=== PATIENT | male | born 1955 | race Caucasian/White ===

== ENCOUNTER 2017-07-30 08:13 | Outpatient (CLI) | payer OTHER ==
[~2017-07-30 08:13] MED LIST: ASPI-1009 PO; COR3.125T PO; LISI-222 PO; METF500T PO; METH5TAB PO; MORP60TA32 PO; OMEG500C PO; OMEP-84 PO; PRED20TA PO; ROSU40TA PO
[2017-07-30] MEDS ORDERED: nitroGLYCERIN 0.4mg SUBLingual tab SL PRN (08:35)
[2017-07-30] MEDS ORDERED: aminophylline 250mg/10ml inj. IV PRN (08:35)
[2017-07-30] MEDS ORDERED: regadenoson 0.4mg/5ml syringe IV ONE ×2 (08:35→10:06)
[2017-07-30] MEDS ORDERED: normal saline 500ml IV soln 500 ML IV ONE (08:35)
[2017-07-30 10:05] VITALS: BP 130/55
[2017-07-30] MEDS ORDERED: aminophylline inj. 10 ML IV ONE (10:06)
[2017-07-30 10:18] VITALS: BP 132/50
[2017-07-30 10:20] VITALS: BP_SYST 116; BP_SYST 123; BP_DIAS 51; BP_DIAS 60
[2017-07-30 10:21] VITALS: BP 121/57
[2017-07-30 10:25] VITALS: BP 132/58
== END 2017-07-30 23:59 | disposition home or self-care (01) ==
LOC: RAD 08:13
PROVIDERS: ATTEND Internal Medicine Interventional Cardiology
DX: R07.9 Chest pain, unspecified (principal); Z88.0 Allergy status to penicillin; Z72.89 Other problems related to lifestyle
CPT/HCPCS: 78452; A9500; J0280; J7030

== ENCOUNTER 2020-02-14 08:30 | Inpatient (IN) | payer MEDICARE ==
[2020-02-07 16:35] LABS: LYMPHOCYTES # (AUTO) 0.8 X10'3 (1.1-4.8); MEAN CORPUSCULAR HGB CONC 30.5 g/dL (33.0-36.5); MONOCYTES # (AUTO) 0.3 X10'3 (0-0.9)
[2020-02-07 16:37] LABS: BASOPHILS % (AUTO) 1.5 % (0-1); EOSINOPHILS % (AUTO) 1.3 % (0-6); LYMPHOCYTES % (AUTO) 23.2 % (21-51); MEAN CORPUSCULAR HEMOGLOBIN 23.2 PG (27.0-31.0); MEAN CORPUSCULAR VOLUME 75.9 FL (78-98); MEAN PLATELET VOLUME 9.2 FL (7.4-10.4); MONOCYTES % (AUTO) 9.6 % (2-12); NEUTROPHILS # (AUTO) 2.1 X10'3 (1.8-7.7); NEUTROPHILS % (AUTO) 64.4 % (42-75); PRE OP HEMATOCRIT 28.4 % (42.0-52.0); RED BLOOD COUNT 3.75 X10'6 (4.70-6.10)
[2020-02-07 16:59] LABS: ALBUMIN 3.9 G/DL (3.4-5.0); ALBUMIN/GLOBULIN RATIO 1.3 (1.1-1.5); ALKALINE PHOSPHATASE 81 IU/L (46-116); BLOOD UREA NITROGEN 19 MG/DL (7-18); BUN/CREATININE RATIO 16.5 (5.4-32.0); CALCIUM 9.3 MG/DL (8.5-10.1); CHLORIDE 99 MMOL/L (99-107); CREATININE 1.15 MG/DL (0.60-1.10); PRE OP ALT 23 U/L (30-65); PRE OP ANION GAP 3 (8-16); PRE OP AST 19 U/L (10-37); PRE OP BILIRUB, TOTAL 0.5 MG/DL (0.0-1.0); PRE OP GLUCOSE 131 MG/DL (70-104); PRE OP POTASSIUM 4.2 MMOL/L (3.4-5.1); PRE OP SODIUM 137 MMOL/L (135-145); TOTAL CARBON DIOXIDE 35.4 MMOL/L (24-32); TOTAL PROTEIN 6.9 G/DL (6.4-8.2); eGFR 64 ML/MIN
[2020-02-07 17:05] LABS: PRE OP HEMOGLOBIN 8.7 g/dL (14.0-17.9)
[2020-02-07 17:06] LABS: PRE OP PLATELET COUNT 92 X10'3 (140-440)
[2020-02-07 17:13] LABS: PRE OP INR 1.1 INR; PRE OP PROTIME 11.6 SECONDS (9.0-12.0)
[2020-02-07 17:29] LABS: HEMOGLOBIN A1C 6.2 % (4.5-6.2)
[2020-02-07 17:42] LABS: ANISOCYTOSIS 3+; HYPOCHROMASIA 1+; MICROCYTOSIS 1+; PLATELET ESTIMATE DECREASED; POIKILOCYTOSIS 1+; POLYCHROMASIA FEW
[2020-02-07 17:43] LABS: ELLIPTOCYTES 1+; SCHISTOCYTES 1+; TEAR DROP CELLS 1+
[~2020-02-14] VITALS: Ht 167.6 cm; Wt 81.6 kg
[2020-02-14] VITALS (17 sets, daily range): BP systolic 90–145; BP diastolic 40–88
[~2020-02-14 08:30] MED LIST changes: -ASPI-1009 PO; +CHOL20004 PO; +CITA20TA26 PO; +DAPA10TA PO; +DOCUMENT DATE & TIME OF BETA-BLOCKER PO ONE; +MESSAGE TO NURSING IV ONE; +METH-603 PO; -METH5TAB PO; +MORP30TA PO; -MORP60TA32 PO; -OMEG500C PO; -PRED20TA PO; -ROSU40TA PO; +SIMV-45 PO; +TORS10TA17 PO; +famotidine 20mg tablet PO ONE; +tranexamic acid inj. 820 MG in normal saline 100ml IV soln 100 ML IV ONE; +vancomycin 1,500 MG in NS 300ml IV soln IV ONE
[2020-02-14] MEDS ORDERED: ceFAZolin 2gm in dextrose, iso 50 ML IV ONE (09:05)
[2020-02-14] MEDS: ringers solution, lacted 1,000 ML IV SCH ×3 (09:20→18:12)
[2020-02-14] MEDS ORDERED: morphine 4 MG/ML inj SYRINge IV ONE ×2 (09:30→11:05)
[2020-02-14] MEDS ORDERED: midazolam 2 mg/2 ml injection IV ONE (09:30)
[2020-02-14] MEDS ORDERED: morphine 4 MG/ML inj SYRINge ONE (10:59)
[2020-02-14] MEDS ORDERED: ketorolac trometh. 30mg/ml inj. ONE (11:30)
[2020-02-14] MEDS ORDERED: BUPIVAcaine/PF 2.5 mg/ml (0.25%) 30ml vial ONE (11:31)
[2020-02-14] MEDS ORDERED: fentaNYL/PF 50MCG/1 ML 2ML syringe ONE ×2 (12:21→13:25)
[2020-02-14] MEDS ORDERED: MIDAZolam 5mg/5ml vial ONE (12:21)
[2020-02-14] MEDS ORDERED: ondansetron/PF 4mg/2ml inj ONE (12:40)
[2020-02-14] MEDS ORDERED: glycopyrrolate 0.2mg/ml inj ONE (12:40)
[2020-02-14] MEDS ORDERED: sevoflurane 250ml liquid IH ONE (12:40)
[2020-02-14] MEDS ORDERED: rocuronium 10mg/ml inj IV ONE (12:40)
[2020-02-14] MEDS ORDERED: LIDOcaine 1%/PF 5ML 10 MG/ML VIAL ONE (12:40)
[2020-02-14] MEDS ORDERED: neostigmine methylsulfate 1 MG/ML 10ml vial ONE (12:40)
[2020-02-14] MEDS ORDERED: ROPIVAcaine 0.2% (10 MG/5 ML) BOLUS INJECTION INTERSCALE PRN (14:40)
[2020-02-14] MEDS ORDERED: propofol inj 20 ML IV ONE (15:22)
[2020-02-14] MEDS ORDERED: dexamethasone sod phosphate 4mg/ml inj. ONE (15:22)
[2020-02-14] MEDS ORDERED: ROPIVAcaine 0.5% (5mg/ml) 30ml vial ONE ×2 (15:22)
[2020-02-14] MEDS ORDERED: magnesium hydroxide 30ml (MOM) UD suspension PO PRN (15:35)
[2020-02-14] MEDS ORDERED: acetaminophen 325mg tablet PO PRN (15:35)
[2020-02-14] MEDS ORDERED: morphine ER 30mg tablet PO PRN (15:35)
[2020-02-14] MEDS ORDERED: HYDROmorphone inj. 0.5 MG/0.5 ML DISP.SYRIN IV PRN ×2 (15:35→16:20)
[2020-02-14] MEDS ORDERED: bisacodyl 10mg suppository rectal RC PRN (15:35)
[2020-02-14] MEDS ORDERED: diphenhydrAMINE 25mg capsule PO PRN (15:35)
[2020-02-14] MEDS ORDERED: ondansetron/PF 4mg/2ml inj IV PRN (15:35)
[2020-02-14] MEDS: potassium cl 20mEq in 1/2 NS 1,000 ML IV SCH ×3 (15:35→21:20)
--- NOTE | 2020-02-14 15:37 | NUR ---
RECEIVED FROM OR VIA BED WITH OHTF ACCOMPANIED BY ANESTHESIOLOGIST DR CHENEY, REPORT GIVEN. PT AWAKE AND ALERT AND STATING PAIN AT A LEVEL 9. 18 GAUGE PIV L HAND PATENT AND RUNNING LR AT 100 ML/HR. RIGHT SHOULDER DRESSING CDI WITH POWDER PACK AND SLING IN PLACE. PPULSES PALPABLE, BRISK CAP REFILL, KELLER WITH RIGHT UE LIMITED WITH BLOCK. BLOCK CATHETER IN PLACE. SCDS APPLIED.
[2020-02-14] MEDS: ROPIVAcaine 0.2%/PF PUMP/bolus 550 ML INTERSCALE SCH (15:43)
[2020-02-14] MEDS ORDERED: meperidine/PF 25mg/ml syringe ONE (15:52)
[2020-02-14] MEDS ORDERED: LORazepam 2 mg/ml vial IV ONE (15:55)
--- NOTE | 2020-02-14 17:07 | NUR ---
TRANSFERRED VIA BED WITH OHTF ACCOMPANIED BY MYSELF, REPORT GIVEN. PT AWAKE AND ALERT AND STATING PAIN AT A LEVEL 5. 18 GAUGE PIV L HAND PATENT AND RUNNING LR AT 100 ML/HR. RIGHT SHOULDER DRESSING CDI WITH POWDER PACK AND SLING IN PLACE. PPULSES PALPABLE, BRISK CAP REFILL, KELLER WITH RIGHT UE LIMITED WITH BLOCK. BLOCK CATHETER IN PLACE. SCDS APPLIED. PT VERY RESTLESS. LEFT IN CARE OF ANGELINA RN
--- NOTE | 2020-02-14 17:10 | NUR ---
Patient in room ORTHO 4020. I have received report from internal grinder and had the opportunity to ask questions and assume patient care.
--- NOTE | 2020-02-14 17:20 | NUR ---
Patient made to floor taken to room patient on 10L with mask, upped to 14 upon arrival sats at 97% patient breathing wnl, all vitals stable, patient seemed uncomfortable while awake. Patient was set up with post ops and call light. Patient right should were elevated up and had sling in place. Patient sedated from pain control onQ running at 2 and LR at 100ml/hr upon receiving patient.
--- NOTE | 2020-02-14 18:30 | NUR ---
RECEIVED REPORT FROM ANGELINA RODRIGUEZ AND ASSUMED PATIENT CARE
--- NOTE | 2020-02-14 18:30 | NUR ---
Problems reprioritized. Patient report given, questions answered & plan of care reviewed with Annelise RODRIGUEZ.
[2020-02-14] MEDS ORDERED: tranexamic acid inj. 820 MG in normal saline 100ml IV soln 100 ML IV ONE (18:35)
[2020-02-14] MEDS: ceFAZolin 1GM/D5W- ADD-VANTAGE 50 ML IV SCH (18:52)
[2020-02-14] MEDS: carvedilol 6.25mg tablet PO SCH (20:00)
[2020-02-14] MEDS ORDERED: vancomycin/NS 1 GM ADD-VANTAGE 250 ML IV SCH (20:00)
[2020-02-14] MEDS: methadone 10mg tablet PO SCH (22:02)
[2020-02-14] MEDS: sennosides 8.6mg tablet PO SCH (22:02)
[2020-02-14] MEDS: acetaminophen 325mg tablet PO SCH (22:02)
[2020-02-14] MEDS: metFORMIN 500mg tablet PO SCH (22:02)
[2020-02-14] MEDS: atorvastatin 20mg tablet PO SCH (22:02)
[2020-02-14] MEDS: oxyCODONE IR 5mg (immed. release) tablet PO PRN (23:03)
[2020-02-15 02:00] VITALS: BP 129/62
[2020-02-15] MEDS: acetaminophen 325mg tablet PO SCH ×4 (03:54→19:54)
[2020-02-15] MEDS: oxyCODONE IR 5mg (immed. release) tablet PO PRN ×3 (03:54→19:55)
[2020-02-15] MEDS: ceFAZolin 1GM/D5W- ADD-VANTAGE 50 ML IV SCH (03:55)
[2020-02-15] MEDS: potassium cl 20mEq in 1/2 NS 1,000 ML IV SCH ×2 (04:53→23:35)
[2020-02-15 05:40] VITALS: BP 113/48
--- NOTE | 2020-02-15 06:10 | NUR ---
REPORT GIVEN TO ALEXIS RODRIGUEZ
[2020-02-15 07:39] LABS: BASOPHILS % (AUTO) 0.2 % (0-1); EOSINOPHILS % (AUTO) 0 % (0-6); HEMATOCRIT 24.5 % (42.0-52.0); HEMOGLOBIN 7.4 g/dl (14.0-17.9); LYMPHOCYTES # (AUTO) 0.4 X10'3 (1.1-4.8); LYMPHOCYTES % (AUTO) 8.5 % (21-51); MEAN CORPUSCULAR HEMOGLOBIN 24.2 PG (27.0-31.0); MEAN CORPUSCULAR HGB CONC 30.3 g/dL (33.0-36.5); MEAN CORPUSCULAR VOLUME 80.1 FL (78-98); MEAN PLATELET VOLUME 9.1 FL (7.4-10.4); MONOCYTES # (AUTO) 0.4 X10'3 (0-0.9); MONOCYTES % (AUTO) 8.2 % (2-12); NEUTROPHILS # (AUTO) 3.7 X10'3 (1.8-7.7); NEUTROPHILS % (AUTO) 83.1 % (42-75); PLATELET COUNT 64 X10'3 (140-440); RED BLOOD COUNT 3.06 X10'6 (4.70-6.10); RED CELL DISTRIBUTION WIDTH 24.7 % (11.5-14.5); WHITE BLOOD COUNT 4.4 X10'3 (4.5-11.0)
[2020-02-15] MEDS: aspirin 325mg tablet PO SCH (07:58)
[2020-02-15] MEDS: metFORMIN 500mg tablet PO SCH (07:58)
[2020-02-15] MEDS: methadone 10mg tablet PO SCH ×3 (07:59→19:53)
[2020-02-15] MEDS: vitamin D (cholecalciferol) 1,000 unit tablet PO SCH (07:59)
[2020-02-15] MEDS: citalopram 20mg tablet PO SCH (07:59)
[2020-02-15] MEDS: pantoprazole 40mg Tablet.DR PO SCH (07:59)
[2020-02-15] MEDS: carvedilol 6.25mg tablet PO SCH ×2 (07:59→19:53)
[2020-02-15] MEDS: furosemide 20MG tablet PO SCH (07:59)
[2020-02-15] MEDS ORDERED: (Dapagliflozin Propanediol (Farxiga) 10 MG) PO SCH (08:00)
[2020-02-15 08:02] LABS: ANION GAP 7 (8-16); CHLORIDE 100 MMOL/L (99-107); POTASSIUM 5.5 MMOL/L (3.5-5.1); SODIUM 133 MMOL/L (135-145); TOTAL CARBON DIOXIDE 26.5 MMOL/L (24-32)
[2020-02-15] MEDS: lisinopril 10 MG tablet PO SCH (08:05)
[2020-02-15] MEDS: HYDROmorphone 1 mg/ml syringe IV PRN (08:16)
[2020-02-15 09:18] LABS: ANISOCYTOSIS 3+; PLATELET ESTIMATE DECREASED
[2020-02-15 09:19] LABS: HYPOCHROMASIA 1+; POLYCHROMASIA 1+
[2020-02-15 09:20] LABS: ELLIPTOCYTES FEW; MICROCYTOSIS 2+
--- NOTE | 2020-02-15 12:32 | NUR ---
Joint Replacement Consult: Pt s/p R shoulder surgery seen by RD for written/verbal high protein ed w/ RD contact information provided. Hx T2DM A1C less than 7 and not appropriate for DM ed at this time. Pt reports has been eating higher iron foods r/t anemia hx; RD encouraged acidic/vitamin C sources w/ iron to increase absorption. Pt is agreeable to double eggs at breakfast, double meats BIDLD, and diet jello TIDWM; dietary notified. Changed to carb controlled diet today from regular prior w/ PO pending though pt reports good appetite. LBM 02/13. To f/u 02/18 for initial assessment. Addendum: 02/15/20 at [address] Amended: Links added.
[2020-02-15] MEDS ORDERED: MESSAGE TO PHARMACY PO ONE (15:40)
[2020-02-15] MEDS ORDERED: dextrose ORAL solution 15 GM/59 ML bottle PO PRN ×2 (15:40)
[2020-02-15] MEDS ORDERED: glucagon, human recombinant 1mg kit SUBCUT PRN (15:40)
[2020-02-15] MEDS ORDERED: dextrose 50%-water 50ml dispensing syringe IV PRN ×2 (15:40)
[2020-02-15 18:00] VITALS: BP 106/46
[2020-02-15] MEDS: atorvastatin 20mg tablet PO SCH (19:54)
[2020-02-15] MEDS: sennosides 8.6mg tablet PO SCH (19:55)
[2020-02-15] MEDS: insulin glargine (Lantus) pen - multi-dose SQ SCH (21:07)
[2020-02-15] MEDS: diphenhydrAMINE 25mg capsule PO PRN (21:08)
[2020-02-15 22:00] VITALS: BP 103/32
[2020-02-16] MEDS: oxyCODONE IR 5mg (immed. release) tablet PO PRN ×5 (01:02→21:58)
[2020-02-16] MEDS: ondansetron 4mg rapidly disintigrating tab PO PRN (01:11)
[2020-02-16] MEDS: acetaminophen 325mg tablet PO SCH ×3 (01:18→14:20)
[2020-02-16] MEDS: HYDROmorphone 1 mg/ml syringe IV PRN ×2 (03:20→10:53)
[2020-02-16 04:00] VITALS: BP 141/67
[2020-02-16 04:31] LABS: ABG HCO3 26.5 mmol/L (22.0-26.0); ABG OXYGEN SATURATION 95.7 % (94-97); ABG PCO2 (T) 47.6 mmHg (35.0-48.0); ABG PO2 (T) 87.5 mmHg (75.0-100.0); ALLEN'S TEST POSITIVE; FCOHb 0.4 % (0.0-3.9); FLOW 15 L/min; FMetHb 0.5 % (0.0-1.5); FO2Hb 94.8 % (94-97); PATIENT TEMPERATURE 37.4; TOTAL HEMOGLOBIN 8.9 G/dl (14.0-18.0)
[2020-02-16] MEDS ORDERED: furosemide 40mg/4ml inj IV ONE (04:35)
[2020-02-16] MEDS ORDERED: nitroGLYCERIN 1gm ointment UD TP ONE (04:35)
[2020-02-16 04:41] LABS: BASOPHILS % (AUTO) 0.4 % (0-1); EOSINOPHILS % (AUTO) 0.4 % (0-6); HEMATOCRIT 25.9 % (42.0-52.0); HEMOGLOBIN 7.8 g/dl (14.0-17.9); LYMPHOCYTES # (AUTO) 0.8 X10'3 (1.1-4.8); LYMPHOCYTES % (AUTO) 12.2 % (21-51); MEAN CORPUSCULAR HEMOGLOBIN 23.8 PG (27.0-31.0); MEAN CORPUSCULAR HGB CONC 30.1 g/dL (33.0-36.5); MONOCYTES # (AUTO) 0.7 X10'3 (0-0.9); NEUTROPHILS # (AUTO) 5.2 X10'3 (1.8-7.7); PLATELET COUNT 72 X10'3 (140-440); RED BLOOD COUNT 3.28 X10'6 (4.70-6.10); WHITE BLOOD COUNT 6.8 X10'3 (4.5-11.0)
[2020-02-16 05:22] LABS: ALBUMIN 3.4 G/DL (3.4-5.0); ANION GAP 8 (8-16); BLOOD UREA NITROGEN 40 MG/DL (7-18); BUN/CREATININE RATIO 33.6 (5.4-32.0); CALCIUM 8.6 MG/DL (8.5-10.1); CHLORIDE 100 MMOL/L (99-107); CREATININE 1.19 MG/DL (0.60-1.10); GLUCOSE 159 MG/DL (70-104); SODIUM 135 MMOL/L (135-145); TOTAL CARBON DIOXIDE 26.7 MMOL/L (24-32); TROPONIN I 0.05 NG/ML (0.0-0.05); eGFR 62 ML/MIN
[2020-02-16 06:00] VITALS: BP 141/67
--- NOTE | 2020-02-16 06:25 | NUR ---
Patient in room ORTHO 4022. I have received report from Cathy and had the opportunity to ask questions and assume patient care.
--- NOTE | 2020-02-16 06:29 | NUR ---
Problems reprioritized. Patient report given, questions answered & plan of care reviewed with JENNIFER FARFAN.
--- NOTE | 2020-02-16 06:54 | NUR ---
i administered dilaudid 1mg at 0320 but did't get scanned.
[2020-02-16 06:57] LABS: ANISOCYTOSIS 3+; MICROCYTOSIS 1+; PLATELET ESTIMATE DECREASED
[2020-02-16 06:58] LABS: POLYCHROMASIA FEW; STOMATOCYTES 1+
[2020-02-16] MEDS: potassium cl 20mEq in 1/2 NS 1,000 ML IV SCH (07:35)
[2020-02-16] MEDS: citalopram 20mg tablet PO SCH (08:00)
[2020-02-16] MEDS: pantoprazole 40mg Tablet.DR PO SCH (08:00)
[2020-02-16] MEDS: furosemide 20MG tablet PO SCH (08:02)
[2020-02-16] MEDS: methadone 10mg tablet PO SCH ×3 (08:02→21:49)
[2020-02-16] MEDS: carvedilol 6.25mg tablet PO SCH ×2 (08:03→19:00)
[2020-02-16] MEDS: vitamin D (cholecalciferol) 1,000 unit tablet PO SCH (08:05)
[2020-02-16] MEDS: lisinopril 10 MG tablet PO SCH (08:05)
[2020-02-16] MEDS: aspirin 325mg tablet PO SCH (08:06)
[2020-02-16] MEDS: insulin Lispro (HumaLOG) vial - multi-dose SQ SCH ×3 (09:08→18:58)
[2020-02-16 10:00] VITALS: BP 109/48
--- NOTE | 2020-02-16 12:05 | NUR ---
PAGER ID: [phone] MESSAGE: Marzena Clements on ortho, Mr. Ford in [id number] is requesting "afrin" nasal spray, please advise #[phone]
[2020-02-16] MEDS: oxymetazoline 15 ML nasal spray NS PRN ×2 (13:30→21:58)
[2020-02-16] MEDS: ROPIVAcaine 0.2%/PF PUMP/bolus 550 ML INTERSCALE SCH (14:40)
[2020-02-16] MEDS ORDERED: acetaminophen 325mg tablet PO PRN (15:35)
[2020-02-16 17:50] LABS: % IRON SATURATION 3 % (11-46); IRON 11 UG/DL (53-167); TOTAL IRON BINDING CAPACITY 333 UG/DL (259-388)
[2020-02-16 18:00] VITALS: BP 118/43
--- NOTE | 2020-02-16 18:25 | NUR ---
Problems reprioritized. Patient report given, questions answered & plan of care reviewed with Kenny.
[2020-02-16] MEDS: morphine IR (immed. release) 30mg tablet PO PRN (19:00)
[2020-02-16] MEDS: sennosides 8.6mg tablet PO SCH ×2 (19:00→21:49)
--- NOTE | 2020-02-16 19:31 | NUR ---
pt refusing to wear sling at this time. pain meds given. oral morphine given. will reinforce sling use.
[2020-02-16] MEDS: atorvastatin 20mg tablet PO SCH (21:49)
[2020-02-16] MEDS: insulin glargine (Lantus) pen - multi-dose SQ SCH (21:53)
[2020-02-17] VITALS (10 sets, daily range): BP systolic 95–125; BP diastolic 29–68
[2020-02-17] MEDS: diphenhydrAMINE 25mg capsule PO PRN (00:47)
[2020-02-17] MEDS: morphine IR (immed. release) 30mg tablet PO PRN ×3 (00:47→21:25)
--- NOTE | 2020-02-17 00:57 | NUR ---
pt took a walk without oxygen. came back and was wheezing. replaced oxygen - pt anxious and painful. encouraged imagery, breathing exercises, etc. pt continues to groan and talk to himself. will continue to monitor sats and breathing.
--- NOTE | 2020-02-17 01:00 | NUR ---
notified Dr. Barrios of pt's decreased sats at 80%. increased oxygen to 4L. sat patient up at side of bed. pt continues to be anxious. orders received.
[2020-02-17] MEDS ORDERED: nitroGLYCERIN 1gm ointment UD TP STA (01:11)
[2020-02-17] MEDS ORDERED: furosemide 40mg/4ml inj IV ONE (01:25)
--- NOTE | 2020-02-17 01:45 | NUR ---
Dr. Barrios came to see pt. ok for am labs to be drawn. listened to lungs -noted decreased breath sounds bilaterally. expiratory wheezes throat not in lungs. lasix given, nitro paste as well. pt sats 90% on 4L while sitting at bedside. falling asleep while sitting up. less anxious at this time. attempted to draw labs
[2020-02-17 02:06] LABS: BASOPHILS % (AUTO) 0.6 % (0-1); EOSINOPHILS # (AUTO) 0.1 X10'3 (0-0.9); EOSINOPHILS % (AUTO) 0.8 % (0-6); HEMATOCRIT 24.3 % (42.0-52.0); HEMOGLOBIN 7.4 g/dl (14.0-17.9); LYMPHOCYTES # (AUTO) 0.6 X10'3 (1.1-4.8); LYMPHOCYTES % (AUTO) 9.2 % (21-51); MEAN CORPUSCULAR HEMOGLOBIN 24.2 PG (27.0-31.0); MEAN CORPUSCULAR HGB CONC 30.3 g/dL (33.0-36.5); MEAN CORPUSCULAR VOLUME 79.8 FL (78-98); MEAN PLATELET VOLUME 9.6 FL (7.4-10.4); MONOCYTES # (AUTO) 0.8 X10'3 (0-0.9); MONOCYTES % (AUTO) 12.9 % (2-12); NEUTROPHILS # (AUTO) 4.9 X10'3 (1.8-7.7); NEUTROPHILS % (AUTO) 76.5 % (42-75); PLATELET COUNT 65 X10'3 (140-440); RED BLOOD COUNT 3.04 X10'6 (4.70-6.10); RED CELL DISTRIBUTION WIDTH 24.4 % (11.5-14.5); WHITE BLOOD COUNT 6.5 X10'3 (4.5-11.0)
[2020-02-17 02:35] LABS: ANISOCYTOSIS 3+; ELLIPTOCYTES 2+; MICROCYTOSIS 1+; PLATELET ESTIMATE DECREASED; POLYCHROMASIA FEW
[2020-02-17] MEDS: ROPIVAcaine 0.2%/PF PUMP/bolus 550 ML INTERSCALE SCH ×2 (06:28→17:37)
--- NOTE | 2020-02-17 06:31 | NUR ---
PT working with patient. noted decreased BP so discontinued nitro patch. PT doing ortho static VS. reported to JENNIFER Santizomanagement department chair issues and anxiety.
[2020-02-17 06:36] LABS: ALANINE AMINOTRANSFERASE 23 U/L (12-78); ALKALINE PHOSPHATASE 57 IU/L (46-116); ANION GAP 4 (8-16); ASPARTATE AMINO TRANSFERASE 21 U/L (10-37); BILIRUBIN,TOTAL 0.7 MG/DL (0.1-1.0); BLOOD UREA NITROGEN 37 MG/DL (7-18); BUN/CREATININE RATIO 28.9 (5.4-32.0); CALCIUM 8.5 MG/DL (8.5-10.1); CHLORIDE 102 MMOL/L (99-107); CREATININE 1.28 MG/DL (0.60-1.10); GLUCOSE 186 MG/DL (70-104); POTASSIUM 5.4 MMOL/L (3.5-5.1); SODIUM 138 MMOL/L (135-145); TOTAL CARBON DIOXIDE 32.5 MMOL/L (24-32); eGFR 57 ML/MIN
[2020-02-17] MEDS: pantoprazole 40mg Tablet.DR PO SCH (07:54)
[2020-02-17] MEDS: citalopram 20mg tablet PO SCH (07:55)
[2020-02-17] MEDS: carvedilol 6.25mg tablet PO SCH ×2 (07:55→21:29)
[2020-02-17] MEDS: methadone 10mg tablet PO SCH ×3 (07:56→21:26)
[2020-02-17] MEDS: furosemide 20MG tablet PO SCH (07:57)
[2020-02-17] MEDS: ferrous sulfate 325mg tablet PO SCH (07:57)
[2020-02-17] MEDS: vitamin D (cholecalciferol) 1,000 unit tablet PO SCH (07:58)
[2020-02-17] MEDS: lisinopril 10 MG tablet PO SCH (07:59)
[2020-02-17] MEDS: aspirin 325mg tablet PO SCH (08:00)
[2020-02-17] MEDS: insulin Lispro (HumaLOG) vial - multi-dose SQ SCH ×3 (09:21→19:34)
[2020-02-17] MEDS: oxyCODONE IR 5mg (immed. release) tablet PO PRN ×2 (10:57→19:10)
--- NOTE | 2020-02-17 11:21 | NUR ---
Student documentation: I have reviewed all interventions, assessments performed and documented by Leander Moran. Student Medication Administration: For this medication-pass time frame, all medication were reviewed, dispensed, administered and documented per hospital policy by Leander Moran.
[2020-02-17 11:50] LABS: OCCULT BLOOD STOOL NEGATIVE (Neg)
--- NOTE | 2020-02-17 13:40 | NUR ---
PAGER ID: [phone] MESSAGE: [id number] Nathen Ford Can I get a potassium draw prior to discharge his K was 5.4 Darlyn [id number]
--- NOTE | 2020-02-17 14:33 | NUR ---
PAGER ID: [phone] MESSAGE: [phone] Nathen Ford Patient xray is up, but no report. Darlyn [phone]
--- NOTE | 2020-02-17 15:54 | NUR ---
Student documentation: I have reviewed and agree assessment performed and documented by Yolis Garsia [facility].
--- NOTE | 2020-02-17 15:59 | NUR ---
Student Medication Administration: For this medication-pass time frame, all medication were reviewed, dispensed, administered and documented per hospital policy by Yolis Garsia [facility].
[2020-02-17] MEDS: levoFLOXACIN-Levaquin 500mg/D5 100 ML IV SCH ×2 (17:42→18:50)
--- NOTE | 2020-02-17 18:45 | NUR ---
Patient in room ORTHO 4020. I have received report from Darlyn RODRIGUEZ and had the opportunity to ask questions and assume patient care.
--- NOTE | 2020-02-17 19:01 | NUR ---
Problems reprioritized. Patient report given, questions answered & plan of care reviewed with Kenny RODRIGUEZ.
--- NOTE | 2020-02-17 19:35 | NUR ---
placed on tele 9. blood cultures and hbg drawn. patient sitting in chair. monitorying manual BP
[2020-02-17 19:47] LABS: HEMATOCRIT 23.1 % (42.0-52.0); MEAN CORPUSCULAR HEMOGLOBIN 23.5 PG (27.0-31.0); MEAN CORPUSCULAR HGB CONC 29.7 g/dL (33.0-36.5); MEAN CORPUSCULAR VOLUME 78.9 FL (78-98); MEAN PLATELET VOLUME 9.5 FL (7.4-10.4); PLATELET COUNT 67 X10'3 (140-440); RED BLOOD COUNT 2.93 X10'6 (4.70-6.10); RED CELL DISTRIBUTION WIDTH 24.1 % (11.5-14.5); WHITE BLOOD COUNT 4.2 X10'3 (4.5-11.0)
[2020-02-17 20:06] LABS: HEMOGLOBIN 6.9 g/dl (14.0-17.9)
[2020-02-17] MEDS ORDERED: furosemide 20 MG/2 ML vial IV ONE (20:35)
--- NOTE | 2020-02-17 21:12 | NUR ---
iv started by ER nurse. blood sent to lab with new blood bank number. awaiting unit to transfuse. pt trying to get ahold of . messages left. noted pt gets anxious quickly
[2020-02-17] MEDS: atorvastatin 20mg tablet PO SCH (21:25)
[2020-02-17] MEDS: sennosides 8.6mg tablet PO SCH (21:25)
[2020-02-17] MEDS: oxymetazoline 15 ML nasal spray NS PRN (21:26)
[2020-02-17] MEDS: insulin glargine (Lantus) pen - multi-dose SQ SCH (21:30)
--- NOTE | 2020-02-17 22:00 | NUR ---
unble to get ahold of . multiple attempts by staff and fur machine operator. message left on a non-descript voicemail. no return call.
--- NOTE | 2020-02-17 23:13 | NUR ---
blood transfusion initiated. noted low sats. increased oxygen to 5L nc while patient sleeping he mouth breaths. noted long expirations and throat wheezes same as last noc. no distres noted at this time. freq VS for blood transfusion. humidification given to oxygen
[2020-02-18] VITALS (8 sets, daily range): BP systolic 96–132; BP diastolic 38–58
[2020-02-18] MEDS: morphine IR (immed. release) 30mg tablet PO PRN (04:39)
--- NOTE | 2020-02-18 05:54 | NUR ---
's phone number we think is [phone]
--- NOTE | 2020-02-18 06:33 | NUR ---
reported to days. noted pt up in chair, on 2L oxygen. pt states he failed cpap 12 years ago and hasn't tried again since then. encouraged to try again as outpatient due to obstructive apnea in the night.
--- NOTE | 2020-02-18 06:52 | NUR ---
Patient in room ORTHO 4020. I have received report from Kenny RODRIGUEZ and had the opportunity to ask questions and assume patient care.
--- NOTE | 2020-02-18 06:56 | NUR ---
Patient in room ORTHO 4020. I have received report from Kenny and had the opportunity to ask questions and assume patient care.
[2020-02-18] MEDS: pantoprazole 40mg Tablet.DR PO SCH (07:38)
[2020-02-18] MEDS: methadone 10mg tablet PO SCH ×3 (07:39→21:31)
[2020-02-18] MEDS: carvedilol 6.25mg tablet PO SCH ×2 (07:39→19:45)
[2020-02-18] MEDS: citalopram 20mg tablet PO SCH (07:39)
[2020-02-18] MEDS: levoFLOXACIN-Levaquin 500mg/D5 100 ML IV SCH (07:39)
[2020-02-18] MEDS: ferrous sulfate 325mg tablet PO SCH (07:40)
[2020-02-18] MEDS: vitamin D (cholecalciferol) 1,000 unit tablet PO SCH (07:40)
[2020-02-18] MEDS: furosemide 20MG tablet PO SCH (07:40)
[2020-02-18] MEDS: lisinopril 10 MG tablet PO SCH (07:41)
[2020-02-18 10:03] LABS: BASOPHILS % (AUTO) 0.7 % (0-1); EOSINOPHILS # (AUTO) 0.1 X10'3 (0-0.9); EOSINOPHILS % (AUTO) 1.9 % (0-6); HEMATOCRIT 26.8 % (42.0-52.0); LYMPHOCYTES # (AUTO) 0.6 X10'3 (1.1-4.8); LYMPHOCYTES % (AUTO) 14.3 % (21-51); MEAN CORPUSCULAR HGB CONC 29.9 g/dL (33.0-36.5); MEAN CORPUSCULAR VOLUME 80.2 FL (78-98); MEAN PLATELET VOLUME 10.1 FL (7.4-10.4); MONOCYTES # (AUTO) 0.6 X10'3 (0-0.9); NEUTROPHILS % (AUTO) 70.1 % (42-75); PLATELET COUNT 71 X10'3 (140-440); RED BLOOD COUNT 3.35 X10'6 (4.70-6.10); RED CELL DISTRIBUTION WIDTH 23.1 % (11.5-14.5); WHITE BLOOD COUNT 4.3 X10'3 (4.5-11.0)
[2020-02-18 10:21] LABS: ALANINE AMINOTRANSFERASE 22 U/L (12-78); ALBUMIN 2.9 G/DL (3.4-5.0); ALBUMIN/GLOBULIN RATIO 0.9 (1.1-1.5); ALKALINE PHOSPHATASE 68 IU/L (46-116); ANION GAP 10 (8-16); ASPARTATE AMINO TRANSFERASE 21 U/L (10-37); BLOOD UREA NITROGEN 41 MG/DL (7-18); BUN/CREATININE RATIO 36.3 (5.4-32.0); CALCIUM 8.3 MG/DL (8.5-10.1); CHLORIDE 99 MMOL/L (99-107); CREATININE 1.13 MG/DL (0.60-1.10); GLUCOSE 271 MG/DL (70-104); POTASSIUM 5.2 MMOL/L (3.5-5.1); SODIUM 138 MMOL/L (135-145); TOTAL CARBON DIOXIDE 28.9 MMOL/L (24-32); TOTAL PROTEIN 6.3 G/DL (6.4-8.2); eGFR 65 ML/MIN
[2020-02-18 10:49] LABS: PLATELET ESTIMATE DECREASED
[2020-02-18 10:50] LABS: ANISOCYTOSIS 3+; HYPOCHROMASIA 1+; MICROCYTOSIS 1+; POLYCHROMASIA 1+
[2020-02-18 10:53] LABS: ELLIPTOCYTES 2+; STOMATOCYTES FEW; TEAR DROP CELLS FEW
[2020-02-18] MEDS: ondansetron 4mg rapidly disintigrating tab PO PRN (12:17)
--- NOTE | 2020-02-18 12:20 | NUR ---
PAGER ID: [phone] MESSAGE: [id number] Nathen Ford patient Xray is up [place] [id number]
[2020-02-18] MEDS: insulin Lispro (HumaLOG) vial - multi-dose SQ SCH ×2 (13:58→19:44)
[2020-02-18] MEDS: aspirin 325mg tablet PO SCH (13:59)
--- NOTE | 2020-02-18 14:56 | NUR ---
Initial: Pt admit for right rotator cuff tear now s/p surgery. Patient had a rapid response d/t hypoxemia and was diagnosed with fluid overload and treated with Lasix per MD notes. Pt remains on CHO controlled diet documented with average 75-100% PO intake meeting estimated nutrient needs. Noted that pt not receiving double protein TID or diet gelatin TID as discussed with pt per last RD note, f/u with dietary regarding food preferences. LBM 02/16. Will continue to follow. Recommendations: 1) Continue CHO controlled diet 2) Double eggs q breakfast, double meat BIDLD, diet gelatin TID 3) Bowel care per rx 4) Scaled weights per rx Addendum: 02/18/20 at [address] Amended: Links added.
[2020-02-18] MEDS: oxyCODONE IR 5mg (immed. release) tablet PO PRN ×2 (15:54→19:45)
--- NOTE | 2020-02-18 17:16 | NUR ---
Patient stated "he has had his meds adjusted by Dr. Gibbons recently."
--- NOTE | 2020-02-18 18:00 | NUR ---
Patient in room ORTHO 4020. I have received report from JENNIFER Santizo and had the opportunity to ask questions and assume patient care. Addendum: 02/18/20 at 1856 by Ghada Hackett RN Amended: Links added.
[2020-02-18] MEDS: oxymetazoline 15 ML nasal spray NS PRN (18:03)
--- NOTE | 2020-02-18 18:24 | NUR ---
PAGER ID: [phone] MESSAGE: [id number] Nathen Ford Do you want an RT eval and treat Darlyn [id number]
[2020-02-18] MEDS ORDERED: albuterol 2.5 MG/3 ML nebule NEB PRN (21:00)
[2020-02-18] MEDS: insulin glargine (Lantus) pen - multi-dose SQ SCH (21:32)
[2020-02-18] MEDS: atorvastatin 20mg tablet PO SCH (21:32)
[2020-02-18] MEDS: sennosides 8.6mg tablet PO SCH (21:32)
[2020-02-18] MEDS: diphenhydrAMINE 25mg capsule PO PRN (21:38)
[2020-02-19] MEDS: oxyCODONE IR 5mg (immed. release) tablet PO PRN ×4 (00:12→17:17)
[2020-02-19 06:45] VITALS: BP 106/52
--- NOTE | 2020-02-19 07:23 | NUR ---
IV patent, dry, clean Addendum: 02/19/20 at 0723 by Avery VARGAS Amended: Links added.
[2020-02-19 07:56] LABS: BASOPHILS % (AUTO) 0.4 % (0-1); EOSINOPHILS # (AUTO) 0.1 X10'3 (0-0.9); EOSINOPHILS % (AUTO) 2.3 % (0-6); HEMATOCRIT 26.7 % (42.0-52.0); HEMOGLOBIN 8.3 g/dl (14.0-17.9); LYMPHOCYTES # (AUTO) 0.6 X10'3 (1.1-4.8); LYMPHOCYTES % (AUTO) 16.9 % (21-51); MEAN CORPUSCULAR HEMOGLOBIN 24.7 PG (27.0-31.0); MEAN CORPUSCULAR VOLUME 79.6 FL (78-98); MEAN PLATELET VOLUME 8.7 FL (7.4-10.4); MONOCYTES # (AUTO) 0.5 X10'3 (0-0.9); MONOCYTES % (AUTO) 12.5 % (2-12); NEUTROPHILS # (AUTO) 2.5 X10'3 (1.8-7.7); NEUTROPHILS % (AUTO) 67.9 % (42-75); PLATELET COUNT 81 X10'3 (140-440); RED BLOOD COUNT 3.35 X10'6 (4.70-6.10); RED CELL DISTRIBUTION WIDTH 22.7 % (11.5-14.5); WHITE BLOOD COUNT 3.7 X10'3 (4.5-11.0)
[2020-02-19] MEDS: methadone 10mg tablet PO SCH ×3 (08:02→21:03)
[2020-02-19] MEDS: pantoprazole 40mg Tablet.DR PO SCH (08:02)
[2020-02-19] MEDS: levoFLOXACIN-Levaquin 500mg/D5 100 ML IV SCH (08:02)
[2020-02-19] MEDS: aspirin 325mg tablet PO SCH (08:08)
[2020-02-19] MEDS: lisinopril 10 MG tablet PO SCH (08:09)
[2020-02-19 08:10] LABS: ALANINE AMINOTRANSFERASE 27 U/L (12-78); ALBUMIN/GLOBULIN RATIO 0.9 (1.1-1.5); ALKALINE PHOSPHATASE 83 IU/L (46-116); ANION GAP 5 (8-16); ASPARTATE AMINO TRANSFERASE 25 U/L (10-37); BILIRUBIN,TOTAL 0.8 MG/DL (0.1-1.0); BLOOD UREA NITROGEN 35 MG/DL (7-18); BUN/CREATININE RATIO 33.3 (5.4-32.0); CALCIUM 8.4 MG/DL (8.5-10.1); CHLORIDE 104 MMOL/L (99-107); CREATININE 1.05 MG/DL (0.60-1.10); GLUCOSE 149 MG/DL (70-104); POTASSIUM 5.1 MMOL/L (3.5-5.1); SODIUM 140 MMOL/L (135-145); TOTAL CARBON DIOXIDE 31.4 MMOL/L (24-32); TOTAL PROTEIN 6.5 G/DL (6.4-8.2); eGFR 71 ML/MIN
[2020-02-19] MEDS: citalopram 20mg tablet PO SCH (08:10)
[2020-02-19] MEDS: carvedilol 6.25mg tablet PO SCH ×2 (08:10→19:23)
[2020-02-19] MEDS: ferrous sulfate 325mg tablet PO SCH (08:10)
[2020-02-19] MEDS: furosemide 20MG tablet PO SCH (08:10)
[2020-02-19] MEDS: vitamin D (cholecalciferol) 1,000 unit tablet PO SCH (08:11)
[2020-02-19 08:19] LABS: ANISOCYTOSIS 3+; HYPOCHROMASIA 1+; MICROCYTOSIS 1+; PLATELET ESTIMATE DECREASED
[2020-02-19] MEDS: insulin Lispro (HumaLOG) vial - multi-dose SQ SCH ×3 (08:49→19:22)
[2020-02-19] MEDS: ROPIVAcaine 0.2%/PF PUMP/bolus 550 ML INTERSCALE SCH (08:52)
[2020-02-19 10:00] VITALS: BP 131/47
--- NOTE | 2020-02-19 11:07 | NUR ---
Student documentation: I have reviewed and agree with all interventions, assessments performed and documented by JUAN BAEZA. Student Medication Administration: For this medication-pass time frame, all medication were reviewed, dispensed, administered and documented per hospital policy by JUAN BAEZA.
--- NOTE | 2020-02-19 11:12 | NUR ---
Patient in room ORTHO 4020. I have received report from Ghada and had the opportunity to ask questions and assume patient care.
[2020-02-19] MEDS ORDERED: LEVO500T89 PO (13:08)
[2020-02-19] MEDS ORDERED: furosemide 20 MG/2 ML vial IV ONE (13:20)
[2020-02-19 18:00] VITALS: BP 134/52
--- NOTE | 2020-02-19 18:32 | NUR ---
Problems reprioritized. Patient report given, questions answered & plan of care reviewed with Mian RODRIGUEZ.
[2020-02-19] MEDS: diphenhydrAMINE 25mg capsule PO PRN (21:03)
[2020-02-19] MEDS: atorvastatin 20mg tablet PO SCH (21:03)
[2020-02-19] MEDS: insulin glargine (Lantus) pen - multi-dose SQ SCH (21:10)
[2020-02-19 22:00] VITALS: BP 125/47
--- NOTE | 2020-02-19 22:00 | NUR ---
Pt requested to hold new PO protonix order if he is sleeping. Held as pt was asleep.
[2020-02-20] VITALS (9 sets, daily range): BP systolic 118–136; BP diastolic 37–56
[2020-02-20] MEDS: pantoprazole 40mg Tablet.DR PO SCH ×3 (02:09→21:09)
[2020-02-20] MEDS: oxyCODONE IR 5mg (immed. release) tablet PO PRN ×4 (02:10→22:17)
[2020-02-20] MEDS: morphine IR (immed. release) 30mg tablet PO PRN ×3 (05:27→17:39)
[2020-02-20 06:29] LABS: BASOPHILS % (AUTO) 0.6 % (0-1); EOSINOPHILS # (AUTO) 0.1 X10'3 (0-0.9); EOSINOPHILS % (AUTO) 1.8 % (0-6); HEMATOCRIT 24.7 % (42.0-52.0); HEMOGLOBIN 7.5 g/dl (14.0-17.9); LYMPHOCYTES # (AUTO) 0.5 X10'3 (1.1-4.8); LYMPHOCYTES % (AUTO) 18.8 % (21-51); MEAN CORPUSCULAR HEMOGLOBIN 24.1 PG (27.0-31.0); MEAN CORPUSCULAR HGB CONC 30.4 g/dL (33.0-36.5); MEAN CORPUSCULAR VOLUME 79.2 FL (78-98); MONOCYTES # (AUTO) 0.4 X10'3 (0-0.9); MONOCYTES % (AUTO) 13.2 % (2-12); NEUTROPHILS # (AUTO) 1.8 X10'3 (1.8-7.7); NEUTROPHILS % (AUTO) 65.6 % (42-75); PLATELET COUNT 71 X10'3 (140-440); RED BLOOD COUNT 3.12 X10'6 (4.70-6.10); RED CELL DISTRIBUTION WIDTH 22.6 % (11.5-14.5); WHITE BLOOD COUNT 2.8 X10'3 (4.5-11.0)
--- NOTE | 2020-02-20 06:46 | NUR ---
Problems reprioritized. Patient report given, questions answered & plan of care reviewed with Emily RODRIGUEZ.
[2020-02-20 06:50] LABS: ALANINE AMINOTRANSFERASE 24 U/L (12-78); ALBUMIN 2.7 G/DL (3.4-5.0); ALBUMIN/GLOBULIN RATIO 0.8 (1.1-1.5); ALKALINE PHOSPHATASE 81 IU/L (46-116); ANION GAP 6 (8-16); ASPARTATE AMINO TRANSFERASE 24 U/L (10-37); BILIRUBIN,TOTAL 0.9 MG/DL (0.1-1.0); BLOOD UREA NITROGEN 23 MG/DL (7-18); BUN/CREATININE RATIO 28.4 (5.4-32.0); CALCIUM 8.3 MG/DL (8.5-10.1); CHLORIDE 105 MMOL/L (99-107); CREATININE 0.81 MG/DL (0.60-1.10); GLUCOSE 93 MG/DL (70-104); POTASSIUM 4.1 MMOL/L (3.5-5.1); SODIUM 140 MMOL/L (135-145); TOTAL CARBON DIOXIDE 29.1 MMOL/L (24-32); TOTAL PROTEIN 5.9 G/DL (6.4-8.2); eGFR > 90 ML/MIN
[2020-02-20] MEDS: levoFLOXACIN-Levaquin 500mg/D5 100 ML IV SCH (08:29)
[2020-02-20] MEDS: carvedilol 6.25mg tablet PO SCH ×2 (08:29→19:34)
[2020-02-20] MEDS: furosemide 20MG tablet PO SCH (08:29)
[2020-02-20] MEDS: methadone 10mg tablet PO SCH ×3 (08:29→21:11)
[2020-02-20] MEDS: citalopram 20mg tablet PO SCH (08:29)
[2020-02-20] MEDS: ferrous sulfate 325mg tablet PO SCH (08:29)
[2020-02-20] MEDS: lisinopril 10 MG tablet PO SCH (08:30)
[2020-02-20] MEDS: vitamin D (cholecalciferol) 1,000 unit tablet PO SCH (08:30)
[2020-02-20] MEDS: aspirin 325mg tablet PO SCH (08:30)
[2020-02-20 08:53] LABS: TOTAL CELLS COUNTED 100
[2020-02-20 08:54] LABS: ANISOCYTOSIS 3+; MICROCYTOSIS 1+; PLATELET ESTIMATE DECREASED
[2020-02-20 08:55] LABS: HYPOCHROMASIA 1+
[2020-02-20] MEDS: insulin Lispro (HumaLOG) vial - multi-dose SQ SCH ×3 (09:25→19:34)
--- NOTE | 2020-02-20 12:00 | NUR ---
Dr Bansal at bedside, discussed transfusion of PRBC with patient. Call to Blood Bank per DR pena, Ok to transfuse per protocol. [address] Bansal.
--- NOTE | 2020-02-20 17:50 | NUR ---
One unit PRBC infused per MD order and finished at 1725. Pt tolerated well. No change in vital signs or temperature. CBC scheduled for am. Will continue to monitor.
--- NOTE | 2020-02-20 18:20 | NUR ---
Patient in room ORTHO 4020. I have received report from Emily RODRIGUEZ and had the opportunity to ask questions and assume patient care.
--- NOTE | 2020-02-20 21:00 | NUR ---
pt became very angry at [address], accuck. Stated he wanted all of his pain meds at one time. I explained the MD orders for medications, dose times, effects of resp. depression. Pt has started yelling that I am the only one who would not give him all of his meds at one time> I reviewed med times 3x to no avail. Pt continued to argue. Charge came in reviewed meds and confirmed appropriateness of medical center representative. After this pt became much more cooperative.
[2020-02-20] MEDS: sennosides 8.6mg tablet PO SCH (21:08)
[2020-02-20] MEDS: atorvastatin 20mg tablet PO SCH (21:08)
[2020-02-20] MEDS: diphenhydrAMINE 25mg capsule PO PRN (21:16)
[2020-02-20] MEDS: insulin glargine (Lantus) pen - multi-dose SQ SCH (21:23)
[2020-02-21] MEDS: morphine IR (immed. release) 30mg tablet PO PRN (04:56)
[2020-02-21 06:00] VITALS: BP 135/46
--- NOTE | 2020-02-21 06:30 | NUR ---
Problems reprioritized. Patient report given, questions answered & plan of care reviewed with Emily RODRIGUEZ.
[2020-02-21 06:39] LABS: BASOPHILS % (AUTO) 0.5 % (0-1); EOSINOPHILS % (AUTO) 0.9 % (0-6); HEMATOCRIT 28.1 % (42.0-52.0); HEMOGLOBIN 8.8 g/dl (14.0-17.9); LYMPHOCYTES # (AUTO) 0.7 X10'3 (1.1-4.8); LYMPHOCYTES % (AUTO) 17.9 % (21-51); MEAN CORPUSCULAR HGB CONC 31.2 g/dL (33.0-36.5); MEAN CORPUSCULAR VOLUME 80.1 FL (78-98); MEAN PLATELET VOLUME 8.9 FL (7.4-10.4); MONOCYTES # (AUTO) 0.4 X10'3 (0-0.9); MONOCYTES % (AUTO) 12.1 % (2-12); NEUTROPHILS # (AUTO) 2.5 X10'3 (1.8-7.7); NEUTROPHILS % (AUTO) 68.6 % (42-75); PLATELET COUNT 74 X10'3 (140-440); RED BLOOD COUNT 3.51 X10'6 (4.70-6.10); RED CELL DISTRIBUTION WIDTH 22.9 % (11.5-14.5); WHITE BLOOD COUNT 3.7 X10'3 (4.5-11.0)
[2020-02-21 06:55] LABS: ALANINE AMINOTRANSFERASE 25 U/L (12-78); ALBUMIN 2.7 G/DL (3.4-5.0); ALBUMIN/GLOBULIN RATIO 0.8 (1.1-1.5); ALKALINE PHOSPHATASE 89 IU/L (46-116); ANION GAP 8 (8-16); ASPARTATE AMINO TRANSFERASE 26 U/L (10-37); BILIRUBIN,TOTAL 1.2 MG/DL (0.1-1.0); BLOOD UREA NITROGEN 18 MG/DL (7-18); BUN/CREATININE RATIO 22.5 (5.4-32.0); CALCIUM 8.3 MG/DL (8.5-10.1); CHLORIDE 108 MMOL/L (99-107); GLUCOSE 100 MG/DL (70-104); POTASSIUM 4.3 MMOL/L (3.5-5.1); SODIUM 145 MMOL/L (135-145); TOTAL CARBON DIOXIDE 29.2 MMOL/L (24-32); TOTAL PROTEIN 5.9 G/DL (6.4-8.2); eGFR > 90 ML/MIN
[2020-02-21] MEDS: ferrous sulfate 325mg tablet PO SCH (08:44)
[2020-02-21] MEDS: levoFLOXACIN-Levaquin 500mg/D5 100 ML IV SCH (08:44)
[2020-02-21] MEDS: citalopram 20mg tablet PO SCH (08:44)
[2020-02-21] MEDS: furosemide 20MG tablet PO SCH (08:44)
[2020-02-21] MEDS: vitamin D (cholecalciferol) 1,000 unit tablet PO SCH (08:44)
[2020-02-21] MEDS: aspirin 325mg tablet PO SCH (08:44)
[2020-02-21] MEDS: methadone 10mg tablet PO SCH (08:44)
[2020-02-21] MEDS: carvedilol 6.25mg tablet PO SCH (08:44)
[2020-02-21 08:50] VITALS: BP_SYST 135
[2020-02-21] MEDS: lisinopril 10 MG tablet PO SCH (08:50)
[2020-02-21] MEDS: insulin Lispro (HumaLOG) vial - multi-dose SQ SCH (09:02)
[2020-02-21] MEDS: pantoprazole 40mg Tablet.DR PO SCH (09:08)
[2020-02-21] MEDS: oxyCODONE IR 5mg (immed. release) tablet PO PRN (11:24)
--- NOTE | 2020-02-21 17:28 | NUR ---
Received discharge orders from Dr. Silva for pt. Printed packet and reviewed discharge paperwork. RX called to [facility]. Dressing changed right shoulder. Incision appears to be healing well. Sutures observed throughout his incision. Patient Teaching regarding wound care. Gave pt 3 more island dressings to use but encouraged him to leave open to air as much as possible. Pt transported via w/c [facility]. present and dc'd pt to private vehicle to home with .
== END 2020-02-21 12:05 | disposition home health service (06) | DRG 483 ==
LOC: PAS 08:30 → EDSTATUS 11:15 → PAS 15:32 → ORTHO 4S 15:33
PROVIDERS: ADMIT Orthopaedic Surgery; ATTEND Internal Medicine
PROC: 0LS30ZZ Reposition Right Upper Arm Tendon, Open Approach (ICD-10-PCS; 2020-02-14)
PROC: 3E0T3BZ Introduction of Anesthetic Agent into Peripheral Nerves and Plexi, Percutaneous Approach (ICD-10-PCS; 2020-02-14)
PROC: 0RRJ00Z Replacement of Right Shoulder Joint with Reverse Ball and Socket Synthetic Substitute, Open Approach (ICD-10-PCS; principal; 2020-02-14 12:40)
PROC: 30233N1 Transfusion of Nonautologous Red Blood Cells into Peripheral Vein, Percutaneous Approach (ICD-10-PCS; 2020-02-17)
DX: M19.011 Primary osteoarthritis, right shoulder (principal); J69.0 Pneumonitis due to inhalation of food and vomit; J90 Pleural effusion, not elsewhere classified; M75.21 Bicipital tendinitis, right shoulder; G89.29 Other chronic pain; I11.0 Hypertensive heart disease with heart failure; D63.8 Anemia in other chronic diseases classified elsewhere; I50.9 Heart failure, unspecified; M75.121 Complete rotator cuff tear or rupture of right shoulder, not specified as traumatic; F41.9 Anxiety disorder, unspecified; R09.02 Hypoxemia; E87.5 Hyperkalemia; Z79.899 Other long term (current) drug therapy; D64.9 Anemia, unspecified
CPT/HCPCS: 36415; 36430; 36600; 71045; 80048; 80051; 80053; 82272; 82803; 82948; 83036; 83540; 83550; 83605; 84132; 84145; 84484; 85007; 85008; 85018; 85025; 85027; 85610; 85730; 86885; 86900; 86901; 86920; 87040; 87081; 87635; 93005; 93306; 94640; 97110; 97116; 97140; 97161; 97530; A4565; A4618; A7000; C1776; G0378; J0690; J1100; J1170; J1815; J1885; J1940; J1956; J2060; J2175; J2250; J2270; J2405; J2704; J2710; J2795; J3010; J3370; J3480; J3490; J7040; J7120; P9016; Q0163